=== PATIENT | female | born 1960 | race Two or more races ===

== ENCOUNTER 2024-10-11 12:25 | Day surgery (SDC) | payer MEDICAID, SELFPAY ==
[2024-10-10 14:17] VITALS: BMI 32.4
[2024-10-11] VITALS (9 sets, daily range): BP systolic 109–141; BP diastolic 65–91; PULSE 82–90; RESP 14–24; TEMP 36.2–37; O2SAT 94–100; BMI 32.8
[2024-10-11] MEDS: RINGERS LACTATED 1000 ML 1,000 ML 100 ML IV (15:10)
[2024-10-11] MEDS: fentaNYL CIT INJ 50 mCg/ML AMP 2ML (ASD USE ONLY) IV (15:11)
[2024-10-11] MEDS: MIDAZOLAM INJ 1 MG/ML VIAL 2 ML (ASD USE ONLY) 2 MG IV ×2 (15:11→15:24)
--- NOTE | 2024-10-11 15:57 | SUR.PHASEII ---
1534: Pt received in recovery. Report from Bibiana BLACK. Pt awake. Resp even, unlabored. VS stable. Denies pain. 1558: Pt more alert. VS stable. Denies pain. Sitting up tolerating po fluids with no difficulty swallowing and no n/v.
--- NOTE | 2024-10-11 16:32 | SUR.PHASEII ---
1507: Pt fully awake, oriented x3. Pt assisted to restroom. Ambulation steady. 1620: Discharge instructions provided with japanese interpreter Miri #[id number]. Both stated understanding of instructions. Pt discharged from [facility] in stable condition.
== END 2024-10-11 16:20 | disposition home or self-care (01) ==
PROVIDERS: PCP Specialist; Referring Provider Surgery; Visit Provider Surgery
PROC: 0DBE8ZX Excision of Large Intestine, Via Natural or Artificial Opening Endoscopic, Diagnostic (ICD-10-PCS; CPT 45380; principal; 2024-10-11 14:30)
DX: Z12.11 Encounter for screening for malignant neoplasm of colon (principal); K57.30 Diverticulosis of large intestine without perforation or abscess without bleeding; E11.9 Type 2 diabetes mellitus without complications; I10 Essential (primary) hypertension; E03.9 Hypothyroidism, unspecified; Z87.19 Personal history of other diseases of the digestive system; Z79.899 Other long term (current) drug therapy; Z79.890 Hormone replacement therapy; Z79.84 Long term (current) use of oral hypoglycemic drugs; Z79.85 Long-term (current) use of injectable non-insulin antidiabetic drugs
CPT/HCPCS: 45378; J2250; J3010; J7120

== ENCOUNTER → 2025-05-31 | Outpatient (CLI) | payer MEDICAID, SELFPAY ==
--- NOTE | 2025-05-31 08:30 | XR_ITS ---
Examination: Screening digital mammography, bilateral Computer aided detection 3-D breast Tomosynthesis, bilateral Date and time of exam: May 31, 2025, 0848 hours, compared to May 30, 2024 Indication: Screening Technique: Nonmagnified MLO, CC views of the breasts to been obtained, reconstructed from 3-D Tomosynthesis images. R2 computer aided detection program utilized for evaluation of suspicious masses and/or abnormal calcifications. 3-D Tomosynthesis images obtained. Findings: Scattered areas of fibroglandular density. Again noted numerous bilateral calcifications More grouped microcalcifications in the retroareolar region right breast No interval suspicious masses Impression: BI-RADS Category 0: Incomplete: Need additional imaging evaluation Recommend follow-up magnification spot compression views of microcalcifications in the retroareolar region right breast as well as right breast sonography to complete the work-up
== END | disposition home or self-care (01) ==
PROVIDERS: Referring Provider Internal Medicine; Visit Provider Internal Medicine
DX: Z12.31 Encounter for screening mammogram for malignant neoplasm of breast (principal); R92.8 Other abnormal and inconclusive findings on diagnostic imaging of breast
CPT/HCPCS: 77063; 77067